=== PATIENT | female | born 1985 | race Caucasian/White ===

== ENCOUNTER 2023-12-26 08:08 | Emergency (ER) | payer MEDICARE, SELFPAY ==
[2023-12-26 08:18] VITALS: BP 116/74; PULSE 70; TEMP 36.8; O2SAT 97; BMI 22.5
--- NOTE | 2023-12-26 08:59 | ED.URI1 ---
HPI - URI/Sore Throat General Chief Complaint: Upper Respiratory Infection Stated Complaint: SYMPTOMS OF COVID Time Seen by Provider: 12/26/23 08:59 Source: patient Limitations: no limitations History of Present Illness HPI Narrative: This patient is not the primary historian as she has severe MRDD. Her mother is here with her and says she acting fine but because another family member tested positive for COVID they want her tested. She is eating and drinking normally. No change in her normal activities. Does not seem to be have any pain shortness of breath cough or congestion. Related Data Allergies Allergy/AdvReac Type Severity Reaction Status Date / Time No Known Drug Allergies Allergy Verified 12/26/23 08:18 Exam Narrative Exam Narrative: This patient's vital signs are completely normal she is watching television she is not restless agitated or irritated. Her skin is warm and dry with mucous memories moist and pink. TMs were examined at the request of the mother and both are normal. She does have some external wax but no evidence of infection. She has no cough or congestion. Her skin is warm and dry with good hydration status. She does not have any evidence of abdominal pain. Her extremities appear normal. Constitutional Vital Signs, click to edit/add: Last Vital Signs Temp 98.3 F 12/26/23 08:18 Pulse 70 12/26/23 08:18 Resp 18 12/26/23 08:18 BP 116/74 12/26/23 08:18 Pulse Ox 97 12/26/23 08:18 O2 Del Method Room Air 12/26/23 08:18 Course Vital Signs Vital signs: Vital Signs Temperature 98.3 F 12/26/23 08:18 Pulse Rate 70 12/26/23 08:18 Respiratory Rate 18 12/26/23 08:18 Blood Pressure 116/74 12/26/23 08:18 Pulse Oximetry 97 12/26/23 08:18 Oxygen Delivery Method Room Air 12/26/23 08:18 Temperature 98.3 F 12/26/23 08:18 Pulse Rate 70 12/26/23 08:18 Respiratory Rate 18 12/26/23 08:18 Blood Pressure 116/74 12/26/23 08:18 Pulse Oximetry 97 12/26/23 08:18 Oxygen Delivery Method Room Air 12/26/23 08:18 MDM - URI/Sore Throat MDM Narrative Medical decision making narrative: This patient tested negative for COVID and RSV at this time. Her mother is positive so with this current virus strain she will probably convert. However she has no respiratory distress or other or need for further diagnostic testing treatment or evaluation at this time Lab Data Labs: Lab Results 12/26/23 Range/Units 08:25 Influenza Type A Ag Negative Influenza Type B Ag Negative RSV Antigen Not detected (NOT DETECTE) SARS-CoV-2 Ag (CV2AG) Negative (NEGATIVE) Discharge Plan Discharge Stand Alone Forms: Work/School Release, Portal Instructions Chief Complaint: Upper Respiratory Infection Clinical Impression: Encounter for well exam without abnormal findings of patient 18 years of age or older Patient Disposition: Home, Self-Care Time of Disposition Decision: 09:44 Print Language: Polish Referrals: Valeri Jacobo MD [Primary Care Provider] - 1 week
[2023-12-26 09:23] LABS: Influenza Virus A Antigen Negative; Influenza Virus B Antigen Negative; Internal Control Within Normal Limits; Respiratory Syncytial Virus Not Detected (NOT DETECTE); SARS-CoV-2 Ag NEGATIVE (NEGATIVE)
== END 2023-12-26 10:08 | disposition home or self-care (01) ==
PROVIDERS: Emergency Provider Emergency Medicine Emergency Medical Services; PCP Family Medicine
DX: Z20.822 Contact with and (suspected) exposure to COVID-19 (principal); F79 Unspecified intellectual disabilities
CPT/HCPCS: 87420; 87804; 87811; 99283

== ENCOUNTER 2024-01-04 19:08 | Emergency (ER) | payer MEDICARE, MEDICAID, SELFPAY ==
--- OUTSIDE RECORDS SUMMARY | 2024-01-04 19:21 | XMS_ITS | CCD ---
Author Organization [facility]ini[facility] Care Team Providers Care Diplomatic Officer Name Role Phone PHYSICIAN, DEFAULT Unavailable Unavailable PHYSICIAN, DEFAULT Unavailable Unavailable MATOUSEK, GINETTE L Unavailable Unavailable DYSON, OZIEL AM Unavailable Unavailable DYSON, OZIEL AM Unavailable Unavailable MATOUSEK, GINETTE L Unavailable Unavailable LUCIA GINETTE L Unavailable Unavailable Bradly De Dios Unavailable ANTONIO SANTANA Admitting Unavailable ANTONIO SANTANA Attending Unavailable ANTONIO SANTANA Consulting Unavailable JAYDEN, DR VALERI Brody Primary Care Unavailable JAYDEN, DR VALERI Brody Primary Care Unavailable MOUKAANA, DR LU Admitting Unavailable MOUKARBEL, DR LU Attending Unavailable MOUKARBEL, DR LU Consulting Unavailable MARU PANTOJA Admitting Unavailable MARU PANTOJA Attending Unavailable MARU PANTOJA Consulting Unavailable JAYDEN, DR VALERI Brody Primary Care Unavailable AISHWARYA, DR MOSELEY Attending Unavailable LAWRENCE AMES Consulting Unavailable JAYDEN, DR VALERI Brody Primary Care Unavailable AISHWARYA, DR MOSELEY Admitting Unavailable DIAN SUÁREZ Consulting Unavailable MD Valeri Carpenter Primary Care Provider [phone] MD Bradly De Dios Attending Provider Valeri Carpenter Primary Care Unavailable Bradly De Dios Attending Unavailable Bradly De Dios Admitting Unavailable Bradly De Dios Attending Unavailable Bradly De Dios Admitting Unavailable Valeri Carpenter Primary Care Unavailable Valeri Carpenter Unavailable Unavailable Primary Care Provider UnavailANNA Claudio Attending Unavailable SAVANNAH WISDOM Attending Unavailable SAVANNAH WISDOM Referring Unavailable SAVANNAH WISDOM Admitting Unavailable SAVANNAH WISDOM Attending Unavailable SAVANNAH WISDOM Referring Unavailable Allergies Allergy Classification Reported Allergen(s) Allergy Type Date of Onset Reaction(s) Facility (1 source) Adhesive Tape; Translations: [ADHESIVE TAPE] Propensity to adverse reactions (disorder) 9 [facility] Repository (2 sources) Latex; Translations: [LATEX] Propensity to adverse reactions (disorder) 9 [facility] Repository (1 source) ADHESIVE TAPE-SILICONES; Translations: [ADHESIVE TAPE-SILICONES] Propensity to adverse reactions to drug (disorder) 2 [facility] Repository Medications Current Medications Medication Drug Class(es) Dates Sig (Normalized) Sig (Original) carvedilol 3.125 mg oral tablet (16 sources) alpha-Adrenergic Miguel, beta-Adrenergic Miguel Start: 10-19-2023 take 3.125 mg by mouth twice daily Carvedilol Active 3.125 MG PO Twice daily 60 October 19, 2023 4:46pm Start: 04-03-2021 End: 10-19-2023 take 3.125 mg by mouth once daily Carvedilol Discontinued 3.125 MG PO Daily April 03, 2021 1:00am October 19, 2023 4:46pm take 1 tablet by mavis th twice daily at mealtime carvedilol (COREG) 25 mg tablet Take 25 mg by mouth 2 times daily (with meals). 0 Active take 1 tablet by mavis th every twelve hours Carvedilol 3.125 MG 1 tablet with food Orally Twice a day Active Carvedilol Activ e clindamycin 10 mg/ml topical lotion (2 sources) Lincosamide Antibacterial Start: 03-13-2014 clindamycin (CLEOCIN T) 1 % lotion Clindamycin Phosphate 1 % External Lotion Refills: 0 Started 13-Mar-2014 Active 0 03/13/2014 Active clobetasol propionate 0.5 mg/ml topical cream (4 sources) Corticosteroid Start: 08-25-2023 Clobetasol Act jagdish 1 APPLIC TOPICAL Twice daily August 25, 2023 12:00am FreeTextSi application Externally Twice a day; Note: Source Status: Start; Refills: 1; Provider: Jayden Brody Clobetasol Propi skyler 0.05 % 1 application Externally Twice a day for 10 days Active esomeprazole 40 mg delayed release oral capsule (7 sources) Proton Pump Inhibitor Start: 08-25-2023 take 1 capsule by mouth once daily Esomeprazole Magnesium Active 1 CAP PO Daily August 25, 2023 12:00am FreeTextSi capsule Orally Once a day; Note: Source Status: Taking; Refills: 5; Qty: 30 Capsule; Provider: Va Iglesias Start: 08-15-2022 take 1 capsule by [facility] every twenty-four hours Esomeprazole Magnesium 40 MG 1 capsule Orally Once a day for 30 days Jul, Active Start: 07-31-2022 take 1 dose by mouth once idalmis y Esomeprazole Magnesium 40 MG 1 packet mixed with 15 ml of water Orally Once a day for 30 days Jul, Active gabapentin 300 mg oral capsule (19 sources) Anti-epileptic Agent Start: 05-31-2018 take 300 mg by mouth twice daily Gabapentin Active 300 MG PO Twice daily May 31, 2018 1:00am gabapentin (NEUR ONTIN) 300 mg capsule 1 capsule 3 (three) times a day. 0 Active Gabapentin Activ e lansoprazole 30 mg disintegrating oral tablet (2 sources) Proton Pump Inhibitor Start: 06-27-2015 lansoprazole (PREVACID SOLUTAB) 30 mg disintegrating tablet 1 tablet (30 mg total) by g-tube route daily. Dissolve in water 90 tablet 1 06/27/2015 Active levETIRAcetam 100 mg/ml oral solution (17 sources) Start: 08-25-2023 take 750 mg by mouth twice daily Levetiracetam Active 750 MG PO Twice daily August 25, 2023 12:00am Start: 05-31-2018 End: 08-25-2023 take 1 tablet by mouth twice daily Levetiracetam (Keppra) 750 mg Tablet Discontinued 750 MG PO Twice daily May 31, 2018 1:00am August 25, 2023 3:49pm Start: 08-31-2014 levETIRAcetam (KEPPRA) 100 mg/mL solution 7.5 Bottles. 0 08/31/2014 Active take 5 mL by mouth once daily le vETIRAcetam 100 MG/ML 5 ml Orally DAILY Active Nutritional Supplements (Replete) 0.06 gram-1 kcal/mL liquid (2 sources) Start: 08-25-2023 nystatin [id number] unt/ml topical cream (2 sources) Polyene Antifungal Start: 11-15-2014 nystatin (MYCOSTATIN) cream 0 Tubes. 0 11/15/2014 Active Omeprazole+Syrspend SF Ann Marie 2 MG/ML (2 sources) Start: 12-02-2022 take 5 mL by mouth once daily Omeprazole+Syrsp end SF Ann Marie 2 MG/ML 5 mL 30 minutes before morning meal Orally Once a day for 30 days Nov, Active polyethylene glycol 3350 23113 mg powder for oral solution (17 sources) Osmotic Laxative Start: 08-25-2023 take 1 g by mouth once daily Start: 05-31-2018 End: 04-03-2021 Polyethylene Glycol 3350 (Mi ralax) 17 gram Powder In Packet Discontinued 17 GM PO Twice daily May 31, 2018 1:00am April 03, 2021 10:36am polyethylene gly col (GLYCOLAX) 17 gram packet 0 Bottles daily. 0 Active MiraLax Orally O nce a day Not-Taking primidone 250 mg oral tablet (20 sources) Anti-epileptic Agent Start: 05-31-2018 take 250 mg by mouth twice daily Primidone Active 250 MG PO Twice daily May 31, 2018 1:00am Primidone Active Promote 1.0 - (10 sources) Promote 1.0 - as directed Orally Not-Taking Replete - (10 sources) Replete - as dir ected Orally Not-Taking Completed/Discontinued Medications Medication Drug Class(es) Dates Sig (Normalized) Sig (Original) aspirin 81 mg oral tablet (13 sources) Platelet Aggregation Inhibitor, Nonsteroidal Anti-inflammatory Drug Start: 04-03-2021 End: 08-25-2023 take 81 mg by mouth once daily Aspirin Discontinued 81 MG PO Daily April 03, 2021 1:00am August 25, 2023 3:48pm Aspirin Not-Taki ng Aspirin Active digoxin 0.25 mg oral tablet (17 sources) Cardiac Glycoside Start: 08-25-2023 End: 08-25-2023 take 1 tablet by mouth once daily Digoxin Discontinued 1 TAB PO Daily August 25, 2023 12:00am August 25, 2023 3:48pm FreeTextSi tablet Orally Once a day; Note: Source Status: Taking; Provider: Jayden Tramemll ( ) Start: 11-25-2018 End: 09-26-2021 Digoxin Discontinued 1 TAB F EEDTUBE Daily November 25, 2018 12:00am September 26, 2021 10:40am Start: 04-29-2013 digoxin (LANOX IN) 250 mcg tablet 0 tablets. Take 1 tablet daily- per G-tube 0 04/29/2013 Active docusate sodium 100 mg oral capsule (3 sources) Start: 05-31-2018 End: 11-25-2018 take 200 mg by mouth twice daily Docusate Sodium Discontinued 200 MG PO Twice daily May 31, 2018 1:00am November 25, 2018 7:23am levothyroxine sodium 0.05 mg oral tablet (17 sources) l-Thyroxi ne Start: 08-25-2023 End: 08-25-2023 take 1 tablet by mouth once daily in the morning Start: 11-25-2018 End: 04-03-2021 Levothyroxine Discontinued 5 0 MCG FEEDTUBE Daily November 25, 2018 12:00am April 03, 2021 10:36am Start: 05-16-2015 take 1 tablet by mavis th once daily in the morning levothyroxine (SYNTHROID, LEVOTHROID) 50 MCG tablet Indications: Hypothyroidism, unspecified hypothyroidism type Take 1 tablet (50 mcg total) by mouth every morning. 90 tablet 1 05/16/2015 Active take 1 tablet by mavis th once daily in the morning Problems Active Problems Problem Classification Problem Date Documented Da te Episodic/Chronic Abdominal pain (10 sources) Abdominal pain; Translations: [Unspecified abdominal pain] Episodic Allergic reactions (1 source) Unspecified contact dermatitis due to other chemical products Episodic Cardiac and circulatory congenital anomalies (3 sources) Congenital malformation of heart, unspecified; Translations: [Tetralogy of Fallot] Onset: 6 05-16-2015 Chronic Complication of device; implant or graft (3 sources) Colostomy hemorrhage; Translations: [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 Conduction disorders (4 sources) Cardiac pacemaker in situ; Translations: [Presence of cardiac pacemaker] Onset: 6 05-16-2015 Chronic Developmental disorders (2 sources) Mild intellectual disabilities; Translations: [Unspecified intellectual disabilities] Onset: 1 Chronic Epilepsy; convulsions (8 sources) Other epilepsy, not intractable, without status epilepticus; Translations: [Epilepsy, unspecified, not intractable, without status epilepticus] Onset: 6 Chronic Esophageal disorders (4 sources) Gastroesophageal reflux disease; Translations: [Gastro-esophageal reflux disease without esophagitis] Onset: 6 05-16-2015 Chronic Fever of unknown origin (4 sources) Fever, unspecified; Translations: [FEVER UNSPECIFIED] Onset: 2 Episodic Genitourinary symptoms and ill-defined conditions (2 sources) Urinary incontinence; Translations: [Unspecified urinary incontinence] Onset: 6 05-16-2015 Chronic Osteoarthritis (2 sources) Osteoarthritis; Translations: [Unspecified osteoarthritis, unspecified site] Onset: 6 05-16-2015 Chronic Other aftercare (1 source) Other emt intermediate (current) drug therapy; Translations: [OTH [facility] CURRENT DRUG THERAPY] Onset: 2 Episodic Other aftercare (1 source) [facility] (current) use of aspirin; Translations: [[facility] CURRENT USE OF ASPIRIN] Onset: 2 Episodic Other aftercare (1 source) Encounter for other specified surgical aftercare Episodic Other and ill-defined heart disease (4 sources) Cardiomegaly; Translations: [CARDIOMEGALY] Onset: 8 Chronic Other gastrointestinal disorders (3 sources) Gastrostomy status; Translations: [GASTROSTOMY STATUS] Onset: 2 Chronic Other gastrointestinal disorders (7 sources) Gastrostomy present; Translations: [Encounter for attention to gastrostomy] 04-03-2021 Chronic Other gastrointestinal disorders (2 sources) Irritable bowel syndrome; Translations: [Irritable bowel syndrome without diarrhea] Onset: 6 05-16-2015 Chronic Other gastrointestinal disorders (7 sources) Patient encounter status; Translations: [Encounter for fitting and adjustment of other gastrointestinal appliance and device] Onset: 6 09-27-2018 Episodic Other gastrointestinal disorders (2 sources) Dysphagia, oropharyngeal phase; Translations: [Dysphagia, oropharyngeal phase] Onset: 4 Episodic Other inflammatory condition of skin (2 sources) Rosacea; Translations: [Rosacea, unspecified] Onset: 6 05-16-2015 Chronic Other nutritional; endocrine; and metabolic disorders (2 sources) Hypocalcemia; Translations: [Hypocalcemia] Onset: 6 05-16-2015 Chronic Paralysis (13 sources) Cerebral palsy, unspecified; Translations: [Cerebral palsy] Onset: 6 Chronic Residual codes; unclassified (2 sources) History of placement of gastrostomy tube; Translations: [History of gastrostomy tube placement] 08-30-2023 Episodic Thyroid disorders (2 sources) Hypothyroidism; Translations: [Hypothyroidism, unspecified] Onset: 6 05-16-2015 Chronic Unclassified (2 sources) Unknown / UNK(Unknown) Onset: 8 Unclassified (1 source) K94.23 - Gastrostomy malfunction; Translations: [K94.23 - Gastrostomy malfunction] Onset: 2 Viral infection (1 source) COVID-19; Translations: [COVID-19] Onset: 2 Past or Other Problems Problem Classification Problem Date Documented Da te Episodic/Chronic Chronic obstructive pulmonary disease and bronchiectasis (2 sources) Bronchitis; Translations: [Bronchitis, not specified as acute or chronic] Onset: 6 05-16-2015 Episodic Complication of device; implant or graft (2 sources) Other mechanical complication of other gastrointestinal prosthetic devices, implants and grafts, initial encounter; Translations: [Other mechanical complication of other gastrointestinal prosthetic devices, implants and grafts, initial encounter] Onset: 4 Episodic Complications of surgical procedures or medical care (18 sources) Malfunction of gastrostomy tube; Translations: [Gastrostomy malfunction] Onset: 1 Resolved: 1 Episodic Deficiency and other anemia (2 sources) Anemia; Translations: [Anemia, unspecified] Onset: 6 05-16-2015 Episodic Gastrointestinal hemorrhage (2 sources) Gastrointestinal hemorrhage; Translations: [Gastrointestinal hemorrhage, unspecified] Onset: 6 05-16-2015 Episodic Malaise and fatigue (2 sources) Fatigue; Translations: [Other fatigue] Onset: 6 05-16-2015 Episodic Other circulatory disease (4 sources) Hemorrhage, not elsewhere classified; Translations: [HEMORRHAGE NOT ELSEWHERE CLASSIFIED] Onset: 2 Episodic Other gastrointestinal disorders (12 sources) Dysphagia; Translations: [Dysphagia, unspecified] Onset: 6 05-16-2015 Episodic Other gastrointestinal disorders (12 sources) Constipation; Translations: [Constipation, unspecified] Onset: 6 05-16-2015 Episodic Other gastrointestinal disorders (1 source) Dysphagia, unspecified; Translations: [Dysphagia, unspecified] Onset: 6 Episodic Other nutritional; endocrine; and metabolic disorders (2 sources) Abnormal weight loss; Translations: [Abnormal weight loss] Onset: 6 05-16-2015 Episodic Other skin disorders (2 sources) Acne; Translations: [Acne, unspecified] Onset: 6 05-16-2015 Episodic Other skin disorders (2 sources) Sebaceous cyst of skin; Translations: [Sebaceous cyst] Onset: 6 05-16-2015 Episodic Results Test Name Value Interpretation Reference Range Facility [facility] 12-25-2023 ----- ----- Attestation signed by Savannah Wisdom MD at 12/29/2023 9:45 AM I saw and evaluated the patient. I reviewed the resident's/fellow's note and agree with the findings and plan documents in the resident's/fellow's note ----- Gastroenterology History and Physical Note IDENTIFYING DATA PATIENT: Whitney Bliss HISTORY OF PRESENT ILLNESS Whitney Bliss is a 38 y.o. female here for PEG tube exchange. PAST MEDICAL, SURGICAL, FAMILY, and SOCIAL HISTORY Past Medical History: Past Medical History: Diagnosis Date Acquired hypothyroidism 12/09/2021 Atrioventricular block 12/09/2021 Cardiac pacemaker in situ 12/09/2021 Complete atrioventricular block (CMS/HCC) 12/09/2021 Tetralogy of Fallot 12/09/2021 Past Surgical History: Past Surgical History: Procedure Laterality Date CORONARY ARTERY BYPASS GRAFT N/A CTA HEART CORONARY W IV CONTRAST 08/24/2017 CT HEART CORONARY ANGIOGRAM OTERO CONVERSION INSERT / REPLACE / REMOVE PACEMAKER Family History: Family History Problem Relation Name Age of Onset Coronary artery disease Father Coronary artery disease Paternal Grandfather Social History: Social History Tobacco Use Smoking status: Never Smokeless tobacco: Never Substance Use Topics Alcohol use: Never Drug use: Never Allergies: Allergies Allergen Reactions Adhesive Tape-Silicones Latex Home Medications: Prior to Admission medications Medication Sig Start Date End Date Taking? Authorizing Provider aspirin 81 mg EC tablet Take 81 mg by mouth in the morning. Historical Provider, carvedilol (Coreg) 3.125 mg tablet Take 1 tablet (3.125 mg) by mouth with breakfast and with evening meal. 10/14/22 10/14/23 Walter Silva MD gabapentin (Neurontin) 300 mg capsule Take 300 mg by mouth in the morning, at noon, and at bedtime. Historical Provider, levETIRAcetam (Keppra) 100 mg/mL solution Take 7.5 mL by mouth in the morning and at bedtime. Historical Provider, primidone (Mysoline) 250 mg tablet Take 250 mg by mouth in the morning and at bedtime. Historical Provider, REVIEW OF SYSTEMS See HPI, otherwise ROS negative as below Review of Systems Unable to perform ROS: Patient nonverbal OBJECTIVE DATA Vitals: There were no vitals taken for this visit. Physical Exam HENT: Head: Normocephalic and atraumatic. Cardiovascular: Rate and Rhythm: Normal rate. Pulmonary: Effort: Pulmonary effort is normal. Abdominal: Palpations: Abdomen is soft. Tenderness: There is no abdominal tenderness. Skin: General: Skin is warm and dry. Neurological: Mental Status: She is alert. Mental status is at baseline. LABS CBC: No results found for: WBC , RBC , HGB , HCT , MCV , RDW , PLT PT/INR No results found for: PT , INR BMP: No results found for: NA , K , CL , BUN , CREATININE , EGFR , GLU LFTs: No results found for: BILITOT , BILIDIR , ALKPHOS , GGT , AST , ALT , ALBUMIN , PROT B12/Folate/Iron studies: No results found for: [id number] , FOLATE , IRON , TIBC , UIBC , IRONSAT , FERRITIN ASSESSMENT AND PLAN Plan: PEG tube exchange Normal [facility] NURSNOTEon 12-25-2023 NURSNOTE Informed consent obtained; procedural timeout preformed; Previous PEG balloon deflated and tube removed by MD; new 20Fr JOANNA g-tube placed and balloon inflated by MD; drain sponge placed beneath bumper; new PEG flushed with water to confirm patency; sign-out timeout performed; pt d/c'd. Please see physician note for full dictation. Makayla Kidd RN Normal [facility] Orders Onlyon 12-22-2023 Orders Only [id number] Sherrell Bliss 1985 F Date Provider Department Center 12/22/2023 Aroldo-SAVANNAH WISDOM [facility] Medical Pavi Family History Problem Relation Age of Onset Coronary artery disease Father Coronary artery disease Paternal Grandfather Family Status - Relation Status Age at Father Paternal Grandfather [facility] NURSNOTEon 07-22-2023 NURSNOTE 21 malaw[place] 10 ml of s safia in balloon, no pain, no change in skin site, [facility] EDPROVon 06-03-2023 EDPROV HPI Chief Complaint Patient presents with ??? G tube problem Per family tube needs replaced and her doctors office told them to bring her here immediately Pts mother states pts G-tube stopped working last night. She states pt does not appear to have any pain. History provided by: Parent [place] Coma Scale Score: 11 Patient History Past Medical History: Diagnosis Date ??? Acquired hypothyroidism 12/09/2021 ??? Atrioventricular block 12/09/2021 ??? Cardiac pacemaker in situ 12/09/2021 ??? Complete atrioventricular block (CMS/HCC) 12/09/2021 ??? Tetralogy of Fallot 12/09/2021 Past Surgical History: Procedure Laterality Date ??? CORONARY ARTERY BYPASS GRAFT N/A ??? CT HEART CORONARY ANGIOGRAM 08/24/2017 CT HEART CORONARY ANGIOGRAM OTERO CONVERSION ??? INSERT / REPLACE / REMOVE PACEMAKER Family History Problem Relation Name Age of Onset ??? Coronary artery disease Father ??? Coronary artery disease Paternal Grandfather Social History Tobacco Use ??? Smoking status: Never ??? Smokeless tobacco: Never Substance Use Topics ??? Alcohol use: Never ??? Drug use: Never Review of Systems Review of Systems Unable to perform ROS: Patient nonverbal Physical Exam ED Triage Vitals [06/03/23 0858] Temp Heart Rate Resp BP 36.6 ???C (97.9 ???F) 82 14 104/70 SpO2 Temp Source Heart Rate Source Patient Position 98 % Oral Monitor Sitting BP Location FiO2 (%) Left arm -- Physical Exam Constitutional: General: She is not in acute distress. Appearance: Normal appearance. She is not ill-appearing, toxic-appearing or diaphoretic. Abdominal: General: Bowel sounds are normal. Tenderness: There is no abdominal tenderness. Hernia: No hernia is present. Comments: G-tube site appears clean. No abdominal tenderness. No signs of site infection. Neurological: Mental Status: She is alert. Procedures ED Course & MDM ED Course as of 06/03/23 1029 ThuJun 03, 2023 1028 Nurse flushed G-tube 3x without difficulty. [BM] ED Course User Index [BM] Med Ascencio NP Diagnoses as of 06/03/23 1029 Feeding tube dysfunction, initial encounter Medical Decision Making Attestion Med Ascencio NP 06/03/23 1028 Normal [facility] CBC AUTO DIFFon 01-09-2022 BASO # 0.0 103/ul Normal 0.0-0.1 [facility] Comment on above: Performed By: #### CBC #### [facility] [address] [address] [address] Yamileth Figueroa Basophils/100 WBC (Bld) 0.2 % Normal 0.2-2.0 [facility] Comment on above: Performed By: #### CBC #### [facility] [address] [address] [address] Yamileth Figueroa EO # 0.0 103/ul Normal 0.0-0.7 [facility] Comment on above: Performed By: #### CBC #### [facility] [address] [address] [address] Yamileth Figueroa Eosinophils/100 WBC (Bld) 0.2 % Critically low 0.9-7.0 [facility] Comment on above: Performed By: #### CBC #### [facility] [address] [place] [address] Dr. Yamileth Figueroa Erythrocyte distribution width (RBC) [Ratio] 12.1 % Normal 11.0-15.0 [facility] Comment on above: Performed By: #### CBC #### [facility] [address] [place] [address] Dr. Yamileth Figueroa Hematocrit (Bld) [Volume fraction] 37.2 % Normal 36.0-48.0 [facility] Comment on above: Performed By: #### CBC #### [facility] [address] [place] [address] Dr. Yamileth Figueroa Hemoglobin (Bld) [Mass/Vol] 12.9 g/dL Normal 12.0-16.0 [facility] Comment on above: Performed By: #### CBC #### [facility] [address] [place] [address] Dr. Yamileth Figueroa IG # 0.02 10e3/ul Normal 0.00-0.03 [facility] Comment on above: Performed By: #### CBC #### [facility] [address] [place] [address] Dr. Yamileth Figueroa IG % 0.4 % Normal 0.0-0.5 [facility] Comment on above: Performed By: #### CBC #### [facility] [address] [place] [address] Dr. Yamileth Figueroa LYMPH # 0.4 103/ul Critically low 1.2-3.8 [facility] Comment on above: Performed By: #### CBC #### [facility] [address] [place] [address] Dr. Yamileth Figueroa Lymphocytes/100 WBC (Bld) 9.5 % Critically low 20.5-60.0 [facility] Comment on above: Performed By: #### CBC #### [facility] [address] [place] [address] Dr. Yamileth Figueroa MANUAL DIFF REQ NO Normal [facility] Comment on above: Performed By: #### CBC #### [facility] [address] [place] [address] Dr. Yamileth Figueroa MCH (RBC) [Entitic mass] 34.2 pg Critically high 26.7-34.0 [facility] Comment on above: Performed By: #### CBC #### [facility] [address] [place] [address] Dr. Yamileth Figueroa MCHC (RBC) [Mass/Vol] 34.7 g/dL Normal 29.9-35.2 [facility] Comment on above: Performed By: #### CBC #### [facility] [address] [place] [address] Dr. Yamileth Figueroa MCV (RBC) [Entitic vol] 98.7 fL Normal 81.0-99.0 [facility] Comment on above: Performed By: #### CBC #### [facility] [address] [place] [address] Dr. Yamileth Figueroa MONO # 0.7 103/ul Normal 0.3-0.8 [facility] Comment on above: Performed By: #### CBC #### [facility] [address] [place] [address] Dr. Yamileth Figueroa Monocytes/100 WBC (Bld) 14.8 % Critically high 1.7-12.0 [facility] Comment on above: Performed By: #### CBC #### [facility] [address] [place] [address] Dr. Yamileth Figueroa NEUT # 3.4 103/ul Normal 1.4-6.5 [facility] Comment on above: Performed By: #### CBC #### [facility] [address] [place] [address] Dr. Yamileth Figueroa Neutrophils/100 WBC (Bld) 74.9 % Normal 43.0-75.0 [facility] Comment on above: Performed By: #### CBC #### [facility] [address] [place] [address] Dr. Yamileth Figueroa Platelet mean volume (Bld) [Entitic vol] 13.3 fL Normal 9.5-13.5 [facility] Comment on above: Performed By: #### CBC #### [facility] [address] [address] [address] Yamileth Figueroa PLT 90 103/ul Critically low 150-450 [facility] Comment on above: Performed By: #### CBC #### [facility] [address] [place] [address] Dr. Yamileth Figueroa RBC 3.77 106/ul Critically low 4.20-5.40 [facility] Comment on above: Performed By: #### CBC #### [facility] [address] [place] [address] Dr. Yamileth Figueroa WBC 4.5 103/ul Normal 4.0-11.0 [facility] Comment on above: Performed By: #### CBC #### [facility] [address] [place] [address] Dr. Yamileth Figueroa Covid-19 PCR (CVDTBH)on 12-26 SARS-CoV-2 (COVID-19) RNA HIEU+probe Ql (Unsp spec) Detected Critically abnormal NOT DETECTED [facility] Comment on above: Result Comment: This test is not yet catherine roved or cleared by the [place] FDA. When there are no FDA-approved or cleared tests available, and other criteria are met, FDA can make tests available under an emergency access mechanism called an Emergency Use Authorization (EUA). The EUA for this test is supported by the [place] of Health and Human Service's declaration that circumstances exist to justify the emergency use of in vitro diagnostics for the detection and/or diagnosis of the virus that causes COVID-19. This EUA will remain in effect for the duration of the COVID-19 declaration justifying emergency of IVDs, unless it is terminated or revoked by the FDA (after which the test may no longer be used). Performed By: #### C VDTBH #### [facility] [address] [place] [address] Dr. Yamileth Figueroa PROF CHEM 8 (BAS METB)on Anion gap [Moles/Vol] 10.1 mmol/L Normal [facility] Comment on above: Performed By: #### BMP #### [facility] [address] [place] [address] Dr. Yamileth Figueroa Calcium [Mass/Vol] 7.6 mg/dL Critically low 8.5-10.1 [facility] Comment on above: Performed By: #### BMP #### [facility] [address] [address] [address] Yamileth Figueroa Chloride [Moles/Vol] 101 mmol/L Normal 98-107 [facility] Comment on above: Performed By: #### BMP #### [facility] [address] [address] [address] Yamileth Figueroa CO2 [Moles/Vol] 27.5 mmol/L Normal 21.0-32.0 [facility] Comment on above: Performed By: #### BMP #### [facility] [address] [place] [address] Dr. Yamileth Figueroa Creatinine [Mass/Vol] 0.63 mg/dL Normal 0.55-1.02 [facility] Comment on above: Performed By: #### BMP #### [facility] [address] [place] [address] Dr. Yamileth Figueroa EGFR-AF THAI >60 Normal >=60 [facility] Comment on above: Performed By: #### BMP #### [facility] [address] [place] [address] Dr. Yamileth Figueroa EGFR-NON AF THAI >60 Normal >=60 [facility] Comment on above: Performed By: #### BMP #### [facility] [address] [place] [address] Dr. Yamileth Figueroa Glucose [Mass/Vol] 91 mg/dL Normal 74-106 [facility] Comment on above: Performed By: #### BMP #### [facility] [address] [address] [address] Yamileth Figueroa Potassium [Moles/Vol] 3.6 mmol/L Normal 3.5-5.1 [facility] Comment on above: Performed By: #### BMP #### [facility] [address] [place] [address] Dr. Yamileth Figueroa Sodium [Moles/Vol] 135 mmol/L Critically low 136-145 [facility] Comment on above: Performed By: #### BMP #### [facility] [address] [address] [address] Yamileth Figueroa Urea nitrogen [Mass/Vol] 13.0 mg/dL Normal 7.0-18.0 [facility] Comment on above: Performed By: #### BMP #### [facility] [address] [address] [address] Yamileth Figueroa Urea nitrogen/Creatin ine [Mass ratio] 20.6 mg/mg Normal [facility] Comment on above: Performed By: #### BMP #### [facility] [address] [address] [address] Yamileth Figueroa XR CHEST 1 Von 01-09-2022 XR CHEST 1 V EXAM: XR CHEST 1 V a t 1831 hours HISTORY: COUGH COMPARISON: 05/11/2020 TECHNIQUE: AP upright portable chest x-ray FINDINGS: The study is technically a bit limited by shallow inspiration. The left lung base is also partially obscured by the pacemaker, and the apices are partially obscured by the chin placement. The heart appears mildly enlarged without evidence of cardiac decompensation. No acute infiltrate, effusion or pneumothorax is readily identified. Scoliosis of the spine is noted. IMPRESSION: The study is technically a bit limited. The heart is enlarged without overt cardiac decompensation. A focal infiltrate is not identified at this time. The overall appearance of the chest has probably not changed significantly. A follow-up study encouraging the patient to take a deep inspiration and lift up the chin is recommended. Electronically authenticated by: DIAN SUÁREZ Date: 2022-01-09 19:07 Normal [facility] CBC AUTO DIFFon 10-01-2021 BASO # 0.0 103/ul Normal 0.0-0.1 [facility] Comment on above: Performed By: #### CBC #### [facility] [address] [place] [address] Dr. Yamileth Figueroa Basophils/100 WBC (Bld) 0.2 % Normal 0.2-2.0 [facility] Comment on above: Performed By: #### CBC #### [facility] [address] [place] [address] Dr. Yamileth Figueroa EO # 0.3 103/ul Normal 0.0-0.7 [facility] Comment on above: Performed By: #### CBC #### [facility] [address] [place] [address] Dr. Yamileth Figueroa Eosinophils/100 WBC (Bld) 5.6 % Normal 0.9-7.0 [facility] Comment on above: Performed By: #### CBC #### [facility] [address] [place] [address] Dr. Yamileth Figueora Erythrocyte distribution width (RBC) [Ratio] 12.3 % Normal 11.0-15.0 [facility] Comment on above: Performed By: #### CBC #### [facility] [address] [place] [address] Dr. Yamileth Figueroa Hematocrit (Bld) [Volume fraction] 38.6 % Normal 36.0-48.0 [facility] Comment on above: Performed By: #### CBC #### [facility] [address] [place] [address] Dr. Yamileth Figueroa Hemoglobin (Bld) [Mass/Vol] 13.2 g/dL Normal 12.0-16.0 [facility] Comment on above: Performed By: #### CBC #### [facility] [address] [place] [address] Dr. Yamileth Figueroa IG # 0.01 10e3/ul Normal 0.00-0.03 [facility] Comment on above: Performed By: #### CBC #### [facility] [address] [place] [address] Dr. Yamileth Figueroa IG % 0.2 % Normal 0.0-0.5 [facility] Comment on above: Performed By: #### CBC #### [facility] [address] [place] [address] Dr. Yamileth Figueroa LYMPH # 1.4 103/ul Normal 1.2-3.8 [facility] Comment on above: Performed By: #### CBC #### [facility] [address] [place] [address] Dr. Yamileth Figueroa Lymphocytes/100 WBC (Bld) 23.8 % Normal 20.5-60.0 [facility] Comment on above: Performed By: #### CBC #### [facility] [address] [address] [address] Yamileth Figueroa MANUAL DIFF REQ NO Normal [facility] Comment on above: Performed By: #### CBC #### [facility] [address] [place] [address] Dr. Yamileth Figueroa MCH (RBC) [Entitic mass] 34.1 pg Critically high 26.7-34.0 [facility] Comment on above: Performed By: #### CBC #### [facility] [address] [place] [address] Dr. Yamileth Figueroa MCHC (RBC) [Mass/Vol] 34.2 g/dL Normal 29.9-35.2 [facility] Comment on above: Performed By: #### CBC #### [facility] [address] [place] [address] Dr. Yamileth Figueroa MCV (RBC) [Entitic vol] 99.7 fL Critically high 81.0-99.0 [facility] Comment on above: Performed By: #### CBC #### [facility] [address] [place] [address] Dr. Yamileth Figueroa MONO # 0.5 103/ul Normal 0.3-0.8 [facility] Comment on above: Performed By: #### CBC #### [facility] [address] [place] [address] Dr. Yamileth Figueroa Monocytes/100 WBC (Bld) 7.9 % Normal 1.7-12.0 [facility] Comment on above: Performed By: #### CBC #### [facility] [address] [place] [address] Dr. Yamileth Figueroa NEUT # 3.8 103/ul Normal 1.4-6.5 [facility] Comment on above: Performed By: #### CBC #### [facility] [address] [place] [address] Dr. Yamileth Figueroa Neutrophils/100 WBC (Bld) 62.3 % Normal 43.0-75.0 [facility] Comment on above: Performed By: #### CBC #### [facility] [address] [place] [address] Dr. Yamileth Figueroa Platelet mean volume (Bld) [Entitic vol] 13.4 fL Normal 9.5-13.5 [facility] Comment on above: Performed By: #### CBC #### [facility] [address] [address] [address] Yamileth Figueroa PLT 137 103/ul Critically low 150-450 [facility] Comment on above: Performed By: #### CBC #### [facility] [address] [place] [address] Dr. Yamileth Figueroa RBC 3.87 106/ul Critically low 4.20-5.40 [facility] Comment on above: Performed By: #### CBC #### [facility] [address] [place] [address] Dr. Yamileth Figueroa WBC 6.0 103/ul Normal 4.0-11.0 [facility] Comment on above: Performed By: #### CBC #### [facility] [address] [place] [address] Dr. Yamileth Figueroa PROF 14(COMP METB)on 022 Albumin [Mass/Vol] 3.5 g/dL Normal 3.4-5.0 [facility] Comment on above: Performed By: #### CMP #### [facility] [address] [place] [address] Dr. Yamileth Figueroa Albumin/Globulin [Mass ratio] 0.9 {ratio} Normal [facility] Comment on above: Performed By: #### CMP #### [facility] [address] [place] [address] Dr. Yamileth Figueroa ALP [Catalytic activity/Vol] 136 U/L Critically high 46-116 [facility] Comment on above: Performed By: #### CMP #### [facility] [address] [place] [address] Dr. Yamileth Figueroa ALT [Catalytic activity/Vol] 46 U/L Normal 14-59 [facility] Comment on above: Performed By: #### CMP #### [facility] [address] [place] [address] Dr. Yamileth Figueroa Anion gap [Moles/Vol] 11.9 mmol/L Normal [facility] Comment on above: Performed By: #### CMP #### [facility] [address] [place] [address] Dr. Yamileth Figueroa AST [Catalytic activity/Vol] 23 U/L Normal 15-37 [facility] Comment on above: Performed By: #### CMP #### [facility] [address] [place] [address] Dr. Yamileth Figueroa Bilirubin [Mass/Vol] 0.3 mg/dL Normal 0.2-1.0 [facility] Comment on above: Performed By: #### CMP #### [facility] [address] [place] [address] Dr. Yamileth Figueroa Calcium [Mass/Vol] 8.2 mg/dL Critically low 8.5-10.1 [facility] Comment on above: Performed By: #### CMP #### [facility] [address] [place] [address] Dr. Yamileth Figueroa Chloride [Moles/Vol] 102 mmol/L Normal 98-107 [facility] Comment on above: Performed By: #### CMP #### [facility] [address] [place] [address] Dr. Yamileth Figueroa CO2 [Moles/Vol] 27.8 mmol/L Normal 21.0-32.0 [facility] Comment on above: Performed By: #### CMP #### [facility] [address] [place] [address] Dr. Yamileth Figueroa Creatinine [Mass/Vol] 0.58 mg/dL Normal 0.55-1.02 [facility] Comment on above: Performed By: #### CMP #### [facility] [address] [place] [address] Dr. Yamileth Figueroa EGFR-AF THAI >60 Normal >=60 [facility] Comment on above: Performed By: #### CMP #### [facility] [address] [place] [address] Dr. Yamileth Figueroa EGFR-NON AF THAI >60 Normal >=60 [facility] Comment on above: Performed By: #### CMP #### [facility] [address] [address] [address] Yamileth Figueroa Globulin (S) [Mass/Vol] 3.8 g/dL Normal [facility] Comment on above: Performed By: #### CMP #### [facility] [address] [address] [address] Yamileth Figueroa Glucose [Mass/Vol] 55 mg/dL Critically low 74-106 [facility] Comment on above: Performed By: #### CMP #### [facility] [address] [address] [address] Yamileth Figueroa Potassium [Moles/Vol] 3.7 mmol/L Normal 3.5-5.1 [facility] Comment on above: Performed By: #### CMP #### [facility] [address] [place] [address] Dr. Yamileth Figueroa Protein [Mass/Vol] 7.3 g/dL Normal 6.4-8.2 [facility] Comment on above: Performed By: #### CMP #### [facility] [address] [address] [address] Yamileth Figueroa Sodium [Moles/Vol] 138 mmol/L Normal 136-145 [facility] Comment on above: Performed By: #### CMP #### [facility] [address] [place] [address] Dr. Yamileth Figueroa Urea nitrogen [Mass/Vol] 11.0 mg/dL Normal 7.0-18.0 [facility] Comment on above: Performed By: #### CMP #### [facility] [address] [address] [address] Yamileth Figueroa Urea nitrogen/Creatin ine [Mass ratio] 19.0 mg/mg Normal [facility] Comment on above: Performed By: #### CMP #### [facility] [address] [address] [address] Yamileth Figueroa LEVETIRACETAM, SERUM OR PLAS MAon 07-12-2021 Levetiracetam, S 15.3 ug/mL Normal 10.0-40.0 [facility] Comment on above: Performed By: #### KEPPRA #### [facility] [address] [address] [address] Yamileth Figueroa CTA HEART-CORONARY/ ARTERY B YPASS GRAFT WITH 3DPPon 08-24-2017 CTA HEART-CORONARY/ ARTERY BYPASS GRAFT [facility] 3DPP [facility] [place] [address] P atient Name: WHITNEY BLISS : 1985Sex: FAge: Race: WhiteMRN: [id number]. Location: 30Patient Status: OVisit #: [id number] Date: 08/13/2017 10:55:00 AMCompleted Date: 08/24/2017 03:22 PMRequesting Provider: OZIEL DYSON AM Attending Provider: OZIEL DYSON AM Report Copy To: GINETTE MYERS Signs & Symptoms: RV function EspeciallyHistory: Order scanned into [employer] highmark @ [phone] call ref# [id number]: RV function EspeciallyExam: CTA HEART-CORONARY/ ARTERY BYPASS GRAFT WITH 3DPPAccession #: [id number] ======CTA HEART-CORONARY/ ARTERY BYPASS GRAFT WITH 3DPP 08/24/2017 3:22 PM EDT SIGN AND SYMPTOMS: RV function Especially TECHNOLOGIST COMMENTS: hx of heart disease heart function, RV function pt with MRDD QUESTIONS PER RADIOLOGIST: RV function Especially PROTOCOL: Axial CT angiography images were obtained with IV contrast. CONTRAST: Contrast: OMNIPAQUE 350 (LOCM), 100 milliliter, Intravenous TECHNIQUE: Multidetector CT angiogram was obtained using prospective ECG gating. Imaging was performed from the level of the clavicles to the level of the hemidiaphragms. In order to provide better evaluation of the anatomy and disease process, advanced off-line 3-D post-processing techniques, including were performed. Medication administered in preparation for the examination located in nursing documentation. COMPARISON: None. CORONARY ARTERY ANGIOGRAM FINDINGS: Gated cardiac CT examination is performed. There is enlargement right ventricle and right-sided pacer wires are seen within the atrium and ventricle was left subclavian pacer seen in place. There is mild cardiomegaly but no evidence of pericardial effusion. [place] coronary arteries appear grossly unremarkable. 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 There is normal left ventricular wall motion. There is mild global decreased motion of the right ventricle. Cardiac Devices and Indwelling Central Venous Lines: Left subclavian pacer in place. EXTRACARDIAC FINDINGS: Other lung findings: No focal consolidation in the visualized parts of the lungs. Airway: Normal.Pleura: No pleural effusion, thickening, or pneumothorax.Thoracic aorta and great vessels: Prominent ascending aorta with maximum dimension of 3.8 cm diameter suggesting post aortic valve stenosis dilatation or could be secondary to long-standing hypertensionPulmonary arteries: Normal. .Heart and pericardium: Mild cardiomegaly.Lymph nodes: No enlarged thoracic lymph nodes.Thoracic spine: Normal.Chest wall: Normal.Visualized upper abdomen: Normal. IMPRESSION: 1. Gated cardiac CT examination revealed prominent ascending aorta which could be secondary to poststenotic aortic dilatation or chronic hypertension. No dissection. Incidental aberrant right subclavian artery origin from the aortic arch Normal wall motion and ejection fraction of the left ventricle. Enlarged right ventricle with global diffuse hypokinesis. Electronically signed by:Estefany Hall. Transcribed by: [email or web address], User Resident: Electronically Signed by: ESTEFANY HALL @ 08/24/2017 06:36 PM Normal [facility] Comment on above: Order Comment: RV function Especially Vital Signs Date Time Vital Sign Value Performing Clinician Facility 10-27-2023 08:42-0400 Body height 134.62 cm [facility] 10-27-2023 08:42-0400 Body mass index (BMI) [Ratio] 25.9 kg/m2 [facility] 10-27-2023 08:42-0400 Body weight 47 kg [facility] 10-27-2023 08:42-0400 Diastolic blood pressure 76 mm[Hg] [facility] 10-27-2023 08:42-0400 Heart rate 82 /min [facility] 10-27-2023 08:42-0400 Systolic blood pressure 111 mm[Hg] [facility] 08-25-2023 15:42-0400 Body height 134.62 cm [facility] 08-25-2023 15:42-0400 Body mass index (BMI) [Ratio] 26.2 kg/m2 [facility] 08-25-2023 15:42-0400 Body weight 47.62 kg [facility] 08-25-2023 15:42-0400 Diastolic blood pressure 82 mm[Hg] [facility] 08-25-2023 15:42-0400 Heart rate 105 /min [facility] 08-25-2023 15:42-0400 Systolic blood pressure 121 mm[Hg] [facility] 12-15-2022 11:45-0400 Body height 134.62 cm Valeri Carpenter Other [employer] [facility] Other 12-15-2022 11:45-0400 Body mass index (BMI) [Ratio] 26.28 kg/m2 Valeri Carpenter Other [employer] Other 12-15-2022 11:45-0400 Body weight 47.63 kg Valrei Carpenter Other [employer] Other 12-15-2022 11:45-0400 Diastolic blood pressure 75 mm[Hg] Valeri Carpenter Other [employer] Other 12-15-2022 11:45-0400 Systolic blood pressure 114 mm[Hg] Valeri Carpenter Other [employer] Other 07-31-2022 14:30-0400 Body height 134.62 cm Bradly De Dios Other [employer] Other 07-31-2022 14:30-0400 Body mass index (BMI) [Ratio] 27.03 kg/m2 Bradly De Dios Other [employer] Other 07-31-2022 14:30-0400 Body weight 48.99 kg Bradly De Dios Other [employer] Other 07-31-2022 14:30-0400 Diastolic blood pressure 80 mm[Hg] Bradly De Dios Other [employer] Other 07-31-2022 14:30-0400 Systolic blood pressure 132 mm[Hg] Bradly De Dios Other [employer] Other 07-01-2022 10:00-0500 Body height 134.62 cm Valeri Carpenter Other [employer] Other 07-01-2022 10:00-0500 Body mass index (BMI) [Ratio] 27.03 kg/m2 Valeri Carpenter Other [employer] Other 07-01-2022 10:00-0500 Body weight 48.99 kg Valeri Carpenter Other [employer] Other 07-01-2022 10:00-0500 Diastolic blood pressure 74 mm[Hg] Valeri Carpenter Other [employer] Other 07-01-2022 10:00-0500 Systolic blood pressure 126 mm[Hg] Valeri Carpenter Other [employer] Other 05-20-2022 13:49-0500 Body height 152.4 cm MD Valeri Carpenter Work Phone: [facility] 05-20-2022 13:49-0500 Body temperature 97.5 [degF] MD Valeri Carpenter Work Phone: [facility] 05-20-2022 13:49-0500 Body weight 48.98 kg MD Valeri Carpenter Work Phone: [facility] 05-20-2022 13:49-0500 Diastolic blood pressure 55 mm[Hg] MD Valeri Carpenter Work Phone: [facility] 05-20-2022 13:49-0500 Heart rate 70 /min MD Valeri Carpenter Work Phone: [facility] 05-20-2022 13:49-0500 Respiratory rate 18 /min MD Valeri Carpenter Work Phone: [facility] 05-20-2022 13:49-0500 SaO2% (BldA) [Mass fraction] 96 % MD Valeri Carpenter Work Phone: [facility] 05-20-2022 13:49-0500 Systolic blood pressure 110 mm[Hg] MD Valeri Carpenter Work Phone: [facility] 04-01-2021 15:45-0500 Body height 134.62 cm Bradly De Dios Other [employer] [facility] Other 04-01-2021 15:45-0500 Body mass index (BMI) [Ratio] 26.03 kg/m2 Bradly De Dios Other [employer] [facility] Other 04-01-2021 15:45-0500 Body weight 47.17 kg Bradly De Dios Other Audience [facility] Other Encounters Encounter Date Encounter Type Care Provider Facility Start: 12-25-2023 End: 12-25-2023 [facility] Start: 10-27-2023 [facility] Start: 10-27-2023 End: 10-27-2023 ambulatory [facility] Work Phone: Start: 10-27-2023 End: 10-27-2023 Encounter for general adult medical examination without abnormal findings [facility] Start: 10-27-2023 End: 10-27-2023 Patient encounter procedure [facility] Physician [facility] Work Phone: Start: 08-25-2023 End: 08-25-2023 ambulatory [facility] Work Phone: Start: 08-25-2023 End: 08-25-2023 Patient encounter procedure [facility] Physician [facility] Work Phone: Start: 08-05-2023 End: 08-05-2023 ambulatory ANNA JS [facility] Start: 07-22-2023 End: 07-22-2023 ambulatory [facility] Start: 06-23-2023 Telephone encounter Annabarrett Monter[address] rd LD Work Phone: [facility] Start: 06-04-2023 Telephone encounter Anna Cyril rd LD Work Phone: [facility] Comment on above: tube feeding follow- up Start: 06-03-2023 End: 06-03-2023 Emergency department patient visit [facility] Start: 03-04-2023 End: 03-04-2023 ambulatory Valeri Carpenter Other [employer] Other Start: 03-04-2023 Telephone encounter Valeri Carpenter [facility] Start: 12-15-2022 End: 12-15-2022 ambulatory Valeri Carpenter Other [employer] Other Start: 12-15-2022 Office outpatient visit 15 minutes Valeri Carpenter [facility] Start: 08-15-2022 End: 08-15-2022 ambulatory Bradly Echevarriaaymchester Other [employer] Other Start: 08-15-2022 Telephone encounter Bradly VELASCO [facility] Start: 07-31-2022 (Acute) Acute Visit Bradly VELASCO [facility] Start: 07-31-2022 End: 07-31-2022 ambulatory Bradly Echevarria[place] Other [employer] Other Start: 07-24-2022 End: 07-24-2022 ambulatory Bradly Eche[place] Other [employer] Other Start: 07-24-2022 Telephone encounter Bradly Ehcevarriaamy[place] [facility] Start: 07-01-2022 End: 07-01-2022 ambulatory Valeri Carpenter Other [employer] Other Start: 07-01-2022 Office outpatient visit 15 minutes Valeri Carpenter [facility] Start: 05-22-2022 End: 05-22-2022 ambulatory Valeri Carpenter Other [employer] Other Start: 05-22-2022 Telephone encounter Valeri Carpenter [facility] Start: 05-20-2022 End: 05-20-2022 ambulatory Valeri Carpenter [facility] Start: 05-20-2022 End: 05-20-2022 Admission to same day surgery center MD Valeri Carpenter Work Phone: [facility] Work Phone: Start: 05-20-2022 End: 05-20-2022 ambulatory MD Valeri Carpenter Work Phone: [facility] Work Phone: Start: 02-17-2022 End: 02-17-2022 ambulatory Bradly De Dios Other [employer] Other Start: 02-17-2022 Telephone encounter Bradly VELASCO [facility] Start: 01-09-2022 End: 01-09-[address] PRADIP NEFF Facility:[facility] Start: 10-01-2021 End: 10-02-[address] VALERI CARPENTER Facility:[facility] Start: 09-26-2021 End: 09-26-2021 ambulatory Bradly De Dios [facility] Start: 09-24-2021 End: 09-24-2021 ambulatory Bradly De Dios Other [employer] Other Start: 09-24-2021 Telephone encounter Bradly VELASCO [facility] Start: 07-08-2021 End: 07-09-2021 ambulatory MARU PANTOJA Facility:[facility] Start: 04-01-2021 End: 04-01-2021 ambulatory Bradly De Dios Other [employer] Other Start: 04-01-2021 Patient encounter procedure Bradly De Dios [facility] Start: 03-18-2021 End: 03-18-2021 ambulatory ANTONIO SANTANA Facility:[facility] Start: 08-24-2017 End: 08-25-2017 Ambulatory OZIEL DYSON Facility:[facility] Start: 08-04-2017 End: 08-05-2017 Ambulatory DEFAULT PHYSICIAN Facility:[facility] Start: 05-16-2015 Patient encounter status Anna KHAN Work Phone: [facility] Procedures Date Procedure Procedure Detail Performing Clinician Start: 05-20-2022 Change of gastrostomy tube MD Valeri Carpenter Work Phone: Plan of Treatment Date Care Activity Detail Author Start: 12-26-2022 COVID-19 Vaccine () [facility]19 [facility]ine () [facility] Start: 05-20-2022 [facility] Start: 04-05-2020 DTaP,Tdap and Td Vaccines (4 - Td or Tdap) DTaP,Tdap and Td Vaccines (4 - Td or Tdap) [facility] Start: 09-26-2007 Screening for malign ant neoplasm of cervix Pap Smear [facility] Start: 2004 Adult BMI Screening Adult BMI Screen ing [facility] Start: 1998 Depression Screening Depression Scre ening [facility] Start: 1998 Tobacco Screening Tobacco Screening [facility] Immunizations Immunization Date Immunization Notes Care Provider Fa cility 03-13-2023 influenza, injectabl e, quadrivalent, preservative free [facility] 07-27-2020 COVID-19 mRNA, Comir karl (Pfizer) MD Valeri Carpenter Work Phone: [facility] 01-25-2014 influenza, injectabl e, quadrivalent, contains preservative Bradly De Dios Other [facility] 02-06-2012 influenza, seasonal, injectable, preservative free Anna Minard LD Work Phone: [facility] 02-06-2012 pneumococcal polysaccharide vaccine, 23 valent Anna Minard LD Work Phone: [facility] 02-10-2011 influenza, seasonal, injectable, preservative free Anna Minard LD Work Phone: [facility] 04-05-2010 influenza, seasonal, injectable, preservative free Anna Minard LD Work Phone: [facility] 04-05-2010 tetanus toxoid, redu liz diphtheria toxoid, and acellular pertussis vaccine, adsorbed Anna Minard LD Work Phone: [facility] 02-25-2007 influenza, seasonal, injectable, preservative free Anna Minard LD Work Phone: [facility] 02-25-2006 influenza, seasonal, injectable, preservative free Anna Minard LD Work Phone: [facility] Payers Date Payer Category Payer Self-pay [id number] 2015 [place] [id number] 2015-Present [phone] [address] [place] [address] [id number] 2006 Medicare MEDICARE MEDICAR E PART A & B [id number] 2006-Present [phone] [address] [place] [address] [id number] 1986 Unknown [id number] 1986 Unknown [id number] 1986 Unknown [id number] 1986 Unknown [id number] 1986 Unknown [id number] 1959 Blue Cross Blue Shield [id number] 1958 Medicaid [id number] 1958 Medicare [id number] Blue Cross Blue Shield [id number] Unknown Unknown [id number] 31 Unknown [id number] Social History Date Type Detail Facility Start: 05-16-2015 End: 06-07-2020 Sex Assigned At [facility] [employer] Other Start: 04-03-2021 End: 04-03-2021 Tobacco smoking status NHIS Never smoked tobacco (finding) [facility] Start: 1985 Sex Assigned At Female F [facility] Start: 05-16-2015 Alcohol intake 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) [facility] Start: 05-16-2015 End: 06-07-2020 History of Social function [facility] Childcare Unknown [facility] Start: 1985 Sex Assigned At Not on file P [facility] Goals Date Patient Goal Desired Activity /State Clinical Notes 04-01-2021 to 06-23-2023 Telephone Encounter - Anna Caballero, BILL - 06/23/2023 3:40 PM ESTTelephone Encounter - Anna Caballero, - 06/23/2023 3:40 PM ESTTelephone Encounter - Anna Caballero, BILL - 06/04/2023 4:25 PM EST Note Date & Type Note Facility 06-23-2023 Miscellaneous Notes Formattin g of this note might be different from the original. NUTRITION NOTE This hand sign writer placed a call to Mrs. Bliss (Whitney's grandmother/caregiver) today to follow up regarding Whitney's tube feeding therapy. As the call wasn't answered a message was left requesting a return call. Anna Caballero R.D., L.D. Clinical Dietitian - Outpatient Nutrition Support 06/23/23, 3:41 PM documented in this encounter [facility] 06-23-2023 Telephone encount er Note NUTRITION NOTE This hand sign writer placed a call to Mrs. Bliss (Whitney's grandmother/caregiver) today to follow up regarding Whitney's tube feeding therapy. As the call wasn't answered a message was left requesting a return call. Anna Caballero R.D., L.D. Clinical Dietitian - Outpatient Nutrition Support 06/23/23, 3:41 PM [facility] [employer] 06-04-2023 Miscellaneous Notes Formattin g of this note might be different from the original. NUTRITION NOTE This hand sign writer placed a call to Mrs. Bliss (Whitney's grandmother/caregiver) today to follow up regarding Whitney's tube feeding therapy. As the call wasn't answered a message was left requesting a return call. Anna Caballero R.D., L.D. Clinical Dietitian - Outpatient Nutrition Support 06/04/23, 4:27 PM documented in this encounter [facility] [employer] 06-04-2023 Telephone encount er Note NUTRITION NOTE This hand sign writer placed a call to Mrs. Bliss (Whitney's grandmother/caregiver) today to follow up regarding Whitney's tube feeding therapy. As the call wasn't answered a message was left requesting a return call. Anna Caballero R.D., L.D. Clinical Dietitian - Outpatient Nutrition Support 06/04/23, 4:27 PM [facility] Evaluation note Encounter Date Diagnosis Assessment Notes Nov, Contact dermatitis due to other chemical product, unspecified contact dermatitis type (ICD-10 - L25.3) Keep area clean and dry. Wash hands to prevent infection. Finish cream to help with dryness and itching. Nov, PEG (percutaneous endoscopic gastrostomy) status (ICD-10 - Z93.1) Resolved problem. Grandmother states she will continue to followup w [facility] [employer] Other 04-06-2023 Evaluation note* Encounter Date Diagnosis Assessment Notes Treatment Notes Treatment Clinical Notes Jul, PEG (percutaneous endoscopic gastrostomy) status (ICD-10 - Z93.1) Start Nexium packets daily Follow up in 3-4 months [employer] Other 03-07-2023 Evaluation note* Encounter Date Diagnosis Assessment Notes Treatment Notes Treatment Clinical Notes Jun, Encounter for post surgical wound check (ICD-10 - Z48.89) Wound appears well healed. Exam overall normal today. Discussed medications, decisions grandmother has made in her care. Will continue to follow. Jun, Cerebral palsy, unspecified type (ICD-10 - G80.9) Stable with chronic issues. Will continue tube feed to prevent risk of aspiration. [employer] Other 12-06-2021 Evaluation note* Encounter Date Diagnosis Assessment Notes Treatment Notes Treatment Clinical Notes Mar, PEG tube malfunction (ICD-10 - K94.23) SCHEDULE PEG TUBE REPLACEMENT AT [facility] UNTIL THEN CONTINUE TO FLUSH AFTER FEEDINGS [employer] Other Evaluation noteNo InformationNort [employer] Other Evaluation noteNo assessment information available [facility] Work Phone: Evaluation note* Diagnosis Onset Date Resolution Status Cerebral palsy acute History of gastrostomy tube placement acute Presence of cardiac pacemaker acute Cerebral palsy acute Wellness examination acute [facility] Work Phone: Histohi general Narrative - Reported* Type Description Date Medical History Constipation Medical History Constipation Medical History Black stools Medical History Fever Medical History HEMATEMESIS Medical History Rectal Bleeding Medical History Fecal impaction Medical History Abdominal pain Surgical History PACEMAKER Surgical History OPEN HEART SURGERY Surgical History PEG [employer] Other [employer] general Narrative - Reported* Type Description Date Medical History Constipation Medical History Black stools Medical History Fever Medical History HEMATEMESIS Medical History Rectal Bleeding Medical History Fecal impaction Medical History Abdominal pain Medical History cerebral palsy Medical History Epilepsia partialis continua Medical History Presence of cardiac pacemaker Medical History Tetralogy of Fallot Medical History Urinary incontinence Medical History Severe pulmonary valve regurgita tion Medical History Nonsustained [place] Medical History Complete heart block Surgical History PACEMAKER Surgical History OPEN HEART SURGERY Surgical History PEG [employer] Other history general Narrative - Reported* Type Description Date Medical History Constipation Medical History Black stools Medical History Fever Medical History HEMATEMESIS Medical History Rectal Bleeding Medical History Fecal impaction Medical History Abdominal pain Medical History cerebral palsy Medical History Epilepsia partialis continua Medical History Presence of cardiac pacemaker Medical History Tetralogy of Fallot Medical History Urinary incontinence Medical History Severe pulmonary valve regurgita tion Medical History Nonsustained [place] Medical History Complete heart block Surgical History PACEMAKER Surgical History OPEN HEART SURGERY Surgical History PEG Surgical History replace pacemaker [employer] Other InstructionsNot on filedocumented in this encounter [facility] [employer] System[facility]ructionsNot on filedocumented in this encounter [facility] [facility] Summary Purpose Family History No Family History Records Found Relationship Condition Age at Onset Recorded Date/T joon father Multiple sclerosis Unknown Advance Directives No Advanced Directives Records Found Advance Directive Response Recorded Date/ Time Advance Directives No May 31, 2018 5:19pm Advance Directive Response Recorded Date/ Time Advance Directives No May 31, 2018 6:19pm Chief Complaint and Reason for Visit Chief Complaint Peg Tube Malfunction , Dysphagia Chief Complaint check up Chief Complaint check up wellness Reason for Visit Cerebral palsy History of gastrostomy tube placement Presence of cardiac pacemaker Cerebral palsy Wellness examination Additional Source Comments INFORMATION SOURCE (unrecogn ized section and content) DATE CREATED AUTHOR 10/15/2017 [facility] DATE CREATED AUTHOR AUTHOR'S ORGANIZ ATION 01/29/2022 [facility] DATE CREATED AUTHOR AUTHOR'S ORGANIZ ATION 05/28/2022 [facility] DATE CREATED AUTHOR AUTHOR'S ORGANIZ ATION 08/07/2023 [facility] DATE CREATED AUTHOR AUTHOR'S ORGANIZ ATION 12/29/2023 [facility] REASON FOR VISIT (unrecogniz ed section and content) Reason Onset Date Comments tube feeding follow-up 06/04/2023 Care Teams (unrecognized sec tion and content) Team Status: Inactive Member Role Status Dates Valeri Carpenter MD Primary Care Provider Active Bradly De Dios MD Attending Provider Active Team Status: Active Member Role Status Dates Valeri Carpenter MD Primary Care Provider Active Team Status: Inactive Member Role Status Dates Valeri Carpenter MD Primary Care Provide r, Attending Provider Active Start: August 25, 2023 End: August 25, 2023 Team Status: Inactive Member Role Status Dates Valeri Carpenter MD Primary Care Provide r, Attending Provider Active Start: October 27, 2023 End: October 27, 2023 Goals (unrecognized section and content) Goals may be documented in a n alternate section FOR RECORDS PERTAINING TO PATIENTS WHO ARE OR HAVE BEEN ENROLLED IN A CHEMICAL DEPENDENCY/SUBSTANCEABUSE PROGRAM, SOME INFORMATION MAY BE OMITTED. This clinical summary was aggregated from multiple sources. Caution should be exercised in using it in the provision of clinical care. This summary normalizes information from multiple sources, and as a consequence, information in this document may materially change the coding, format and clinical context of patient data. In addition, data may be omitted in some cases. CLINICAL DECISIONS SHOULD BE BASED ON THE PRIMARY CLINICAL RECORDS. [facility] [employer] provides no warranty or guarantee of the accuracy or completeness of information in this document.
[2024-01-04 19:26] VITALS: BP 132/75; PULSE 83; TEMP 36.8; O2SAT 97
--- NOTE | 2024-01-04 19:42 | XR_ITS ---
The [address] [address] Patient Name: WHITNEY GREEN MRN: [id number] date: 1985 Sex: F Assigned Patient Location: ER Current Patient Location: ER Accession/Order Number: [id number] Exam Date: 01/04/2024 20:15 Report Date: 01/04/2024 21:34 At the request of: LIEN MARKER Procedure: XR acute abdomen series EXAM: XR acute abdomen series HISTORY: fever, s/p PEG tube replacement COMPARISON: None. TECHNIQUE: Frontal view of the chest as well as supine and upright views of the abdomen FINDINGS: Mild enlarged cardiac silhouette is seen. Cardiac pacemaker is seen in place. No dense focal consolidation, pneumothorax or pleural effusion is seen. PEG tube is seen in place. Nonspecific bowel gas pattern is seen. Markedly large volume of stool is seen throughout the colon. The rectum appears to be distended approximately 11.5 cm with stool. No obvious pathologic calcification is seen. No definite gross pneumoperitoneum is seen. XR/XR acute abdomen series IMPRESSION: Markedly large volume of stool seen throughout the colon. Electronically authenticated by: TUSHAR DOMÍNGUEZ Date: 01/04/2024 21:34
--- NOTE | 2024-01-04 20:16 | ED_ITS ---
HPI HPI - General Adult General Chief complaint: Fever Stated complaint: Fever Time Seen by Provider: 01/04/24 19:28 Source: family Mode of arrival: Wheelchair Limitations: no limitations History of Present Illness HPI narrative: This 38-year-old female with a history of cerebral palsy/MRDD is brought to the emergency department by her mother upon recommendation by the family physician for evaluation of intermittent fevers for the past 3 weeks. The mother states that she had her in this emergency department after she tested positive for COVID. The patient tested negative for COVID but has had intermittent fever since that time. She does have a feeding tube which was recently changed out. She has not been having any difficulty feeding. She has not had any vomiting. She does have occasional diarrhea. She has not been coughing. She does not have any skin rash. The mother states that another thing that is different about her is that she does not want to walk. The patient is contracted in her lower extremities but the mother states she is still able to walk when she has since her but most recently the patient has been just standing and shaking when attempting to walk. She has not had any recent seizures. Her Tmax has been around 10 1-1 02. The fever comes down with Tylenol and then bounces back. Related Data Home Medications ?Medication ?Instructions ?Recorded ?Confirmed carvedilol 25 mg tablet 25 mg feeding tube Q12H 01/04/24 01/04/24 gabapentin 300 mg capsule 300 mg feeding tube Q8H 01/04/24 01/04/24 levetiracetam 100 mg/mL oral 750 mg feeding tube Q12H 01/04/24 01/04/24 solution primidone 250 mg tablet 250 mg feeding tube Q12H 01/04/24 01/04/24 Allergies Allergy/AdvReac Type Severity Reaction Status Date / Time No Known Drug Allergies Allergy Verified 01/04/24 19:33 Opioid HPI Opioid Management Most Recent Opioid Data: No Data to Display Review of Systems ROS Status of ROS 10 or more systems reviewed and unremark able except as noted in history and below Exam Narrative Exam Narrative: Vital signs and Nursing Notes reviewed: Patient is afebrile with a normal pulse, normal blood pressure, she is not hypoxic with pulse ox of 97% on room air General: Nontoxic adult female with cerebral palsy, no respiratory distress, she is not lethargic HEENT: Normocephalic atraumatic, mucous membranes are dry-mother states her tongue is always dry because she keeps her tongue sticking out Neck: Supple, no meningeal signs, no anterior or posterior cervical lymphadenopathy Chest: Lungs are clear to auscultation with good air entry, there is no wheezing rhonchi or rales appreciated no accessory muscle use, patient is speaking in complete sentences-no chest wall tenderness to palpation CVS: Regular rate and rhythm S1-S2, no murmurs rubs or gallops, pulses are brisk and equal bilaterally ABD: Soft, nondistended, tube noted in upper abdomen. The site is clean dry and intact with no local erythema or signs of cellulitis Extremities: Contractures are noted of the hands and feet with the feet being externally rotated. There is no noted skin rash, cellulitis or breakdown Skin: Normal in appearance without rash,pallor, petechiae or purpura Neuro: At baseline Constitutional Vital Signs, click to edit/add: Last Vital Signs Temp 98.3 F 01/04/24 19:26 Pulse 83 01/04/24 19:26 Resp 18 01/04/24 19:26 BP 132/75 01/04/24 19:26 Pulse Ox 97 01/04/24 19:26 O2 Del Method Room Air 01/04/24 19:26 Course Vital Signs Vital signs: Vital Signs Temperature 98.3 F 01/04/24 19:26 Pulse Rate 83 01/04/24 19:26 Respiratory Rate 18 01/04/24 19:26 Blood Pressure 132/75 01/04/24 19:26 Pulse Oximetry 97 01/04/24 19:26 Oxygen Delivery Method Room Air 01/04/24 19:26 Temperature 98.3 F 01/04/24 19:26 Pulse Rate 83 01/04/24 19:26 Respiratory Rate 18 01/04/24 19:26 Blood Pressure 132/75 01/04/24 19:26 Pulse Oximetry 97 01/04/24 19:26 Oxygen Delivery Method Room Air 01/04/24 19:26 Medical Decision Making MDM Narrative Medical decision making narrative: This 38-year-old female is brought to the emergency department by her grandmother who has had custody of her since the age of 6 for evaluation of a fever. The grandmother recently had COVID. The patient was tested for COVID at that time but was negative but according to the note the grandmother was told it was presumptively positive as they live together and the patient was having some symptoms. The patient has MRDD/cerebral palsy. She has not recently had any seizures. She has a PEG tube for feeding. She has not had any vomiting or concerns for aspiration. She has not had a cough or runny nose. Her PEG tube was recently replaced. The grandmother states that she gives her Tylenol and the fever comes down but rebounds after the Tylenol has worn off. The patient is nontoxic in appearance and at her neurologic baseline according to the grandmother. An IV was placed and she was medicated with IV fluids. In the emergency department her vital signs were stable. She is negative for strep. Positive for COVID. She has a normal white count and hemoglobin. Lactic acid is normal. Electrolytes are normal. X-ray of the chest and abdomen was reviewed by radiology with no acute findings except constipation and the patient is on MiraLAX.. The urine was unable to be obtained due to the patient's anatomy. The results of the labs and x-ray were discussed with the grandmother who verbalizes understanding. The grandmother inquired as to how long I thought she had had COVID. I explained I am unable to answer that question but at this time she should be quarantined and kept at home with IV fluids, Tylenol and ibuprofen for fever and return to the emergency department for worsening symptoms respiratory difficulty or any concerns. Medical Records Medical records reviewed: Yes I reviewed the patient's medical records Medical records narrative: The [address] [address] XRay Report Signed Patient: WHITNEY GREEN MR#: [id number] : 1985 Acct:[id number] Age/Sex: 38 / F ADM Date: 01/04/24 Loc: ER Attending Dr: Ordering Physician: Elana Jean Date of Service: 01/04/24 Procedure(s): XR acute abdomen series Accession Number(s): [id number] cc: Valeri Jacobo M.D.; Elana Jean~ The [address] [address] Patient Name: WHITNEY GREEN MRN: [facility]:[id number] date: 1985 Sex: F Assigned Patient Location: ER Current Patient Location: ER Accession/Order Number: [id number] Exam Date: 01/04/2024 20:15 Report Date: 01/04/2024 21:34 At the request of: ELANA JEAN Procedure: XR acute abdomen series EXAM: XR acute abdomen series HISTORY: fever, s/p PEG tube replacement COMPARISON: None. TECHNIQUE: Frontal view of the chest as well as supine and upright views of the abdomen FINDINGS: Mild enlarged cardiac silhouette is seen. Cardiac pacemaker is seen in place. No dense focal consolidation, pneumothorax or pleural effusion is seen. PEG tube is seen in place. Nonspecific bowel gas pattern is seen. Markedly large volume of stool is seen throughout the colon. The rectum appears to be distended approximately 11.5 cm with stool. No obvious pathologic calcification is seen. No definite gross pneumoperitoneum is seen. XR/XR acute abdomen series IMPRESSION: Markedly large volume of stool seen throughout the colon. Electronically authenticated by: TUSHAR DOMÍNGUEZ Date: 01/04/2024 21:34 Lab Data Lab results reviewed: Yes I reviewed the patient's lab results Labs: Lab Results 01/04/24 01/04/24 01/04/24 Range/Units 21:00 21:01 21:02 WBC 6.5 (4.0-11.0) 10^3/uL RBC 4.25 (4.20-5.40) 10^6/uL Hgb 14.2 (12.0-16.0) g/dL Hct 41.3 (36.0-48.0) % MCV 97.2 (81.0-99.0) fL MCH 33.4 (26.7-34.0) pg MCHC 34.4 (29.9-35.2) g/dL RDW 12.0 (11.0-15.0) % Plt Count 134 L (150-450) 10^3/uL MPV 12.9 (9.5-13.5) fL Neut % (Auto) 63.2 (43.0-75.0) % Lymph % (Auto) 23.7 (20.5-60.0) % [place] % (Auto) 6.9 (1.7-12.0) % Eos % (Auto) 5.7 (0.9-7.0) % Baso % (Auto) 0.2 (0.2-2.0) % Neut # (Auto) 4.1 (1.4-6.5) 10^3/uL Lymph # (Auto) 1.5 (1.2-3.8) 10^3/uL [place] # (Auto) 0.5 (0.3-0.8) 10^3/uL Eos # (Auto) 0.4 (0.0-0.7) 10^3/uL Baso # (Auto) 0.0 (0.0-0.1) 10^3/uL Abs Immat Gran (auto) 0.02 (0.00-0.03) 10^3/uL Imm/Tot Granulo (auto) 0.3 (0.0-0.5) % Sodium 139 (136-145) mmol/L Potassium 3.5 (3.5-5.1) mmol/L Chloride 101 (98-107) mmol/L Carbon Dioxide 26.1 (21.0-32.0) mmol/L Anion Gap 15.4 BUN 12.0 (7.0-18.0) mg/dL Creatinine 0.68 (0.55-1.02) mg/dL Est GFR ( Amer) >60 (>=60) Est GFR (Non-Af Amer) >60 (>=60) BUN/Creatinine Ratio 17.6 Glucose 81 (74-106) mg/dL Lactate 0.9 (0.4-2.0) mmol/L Calcium 8.6 (8.5-10.1) mg/dL Total Bilirubin 0.3 (0.2-1.0) mg/dL AST 23 (15-37) U/L ALT 28 (14-59) U/L Alkaline Phosphatase 134 H (46-116) U/L Total Protein 7.8 (6.4-8.2) g/dL Albumin 3.8 (3.4-5.0) g/dL Globulin 4.0 g/dL Albumin/Globulin Ratio 0.9 SARS-CoV-2 Ag (CV2AG) Positive A (NEGATIVE) Streptococcus Screen Negative Discharge Plan Discharge Chief Complaint: Fever Clinical Impression: COVID, Acute viral syndrome Patient Disposition: Home, Self-Care Time of Disposition Decision: 22:17 Condition: Good Prescriptions / Home Meds: No Action carvedilol 25 mg tablet 25 mg feeding tube Q12H gabapentin 300 mg capsule 300 mg feeding tube Q8H primidone 250 mg tablet 250 mg feeding tube Q12H levetiracetam 100 mg/mL solution 750 mg feeding tube Q12H Print Language: Italian Instructions: Viral Syndrome (ED), COVID-19 (Coronavirus Disease 2019) (ED), COVID-19 and Chronic Health Conditions (ED), How to Recover from COVID-19 at Home (ED) Referrals: Valeri Jacobo MD [Primary Care Provider] - 1 week
[2024-01-04] MEDS: 0.9 % SODIUM CHLORIDE 1,000 ML 1000 ML IV (21:12)
[2024-01-04 21:24] LABS: Basophils Percent Auto 0.2 % (0.2-2.0); Eosinophils Absolute Auto 0.4 10^3/uL (0.0-0.7); Eosinophils Percent Auto 5.7 % (0.9-7.0); Hematocrit 41.3 % (36.0-48.0); Hemoglobin 14.2 g/dL (12.0-16.0); Immature Granulocytes Abs Auto 0.02 10^3/uL (0.00-0.03); Immature Granulocytes Pct Auto 0.3 % (0.0-0.5); Lymphocytes Absolute Auto 1.5 10^3/uL (1.2-3.8); Lymphocytes Percent Auto 23.7 % (20.5-60.0); Mean Corpuscular HGB Conc 34.4 g/dL (29.9-35.2); Mean Corpuscular Hemoglobin 33.4 pg (26.7-34.0); Mean Corpuscular Volume 97.2 fL (81.0-99.0); Mean Platelet Volume 12.9 fL (9.5-13.5); Monocytes Absolute Auto 0.5 10^3/uL (0.3-0.8); Monocytes Percent Auto 6.9 % (1.7-12.0); Neutrophils Absolute Auto 4.1 10^3/uL (1.4-6.5); Neutrophils Percent Auto 63.2 % (43.0-75.0); Platelet Count 134 10^3/uL (150-450); Red Blood Count 4.25 10^6/uL (4.20-5.40); White Blood Count 6.5 10^3/uL (4.0-11.0)
[2024-01-04 21:44] LABS: SARS-CoV-2 Ag POSITIVE (NEGATIVE)
[2024-01-04 21:45] LABS: Internal Control Within Normal Limits; Strep A Antigen Screen Negative
[2024-01-04 21:45] LABS: Internal Control Within Normal Limits
[2024-01-04 21:46] LABS: Lactate/Lactic Acid 0.9 mmol/L (0.4-2.0)
[2024-01-04 21:52] LABS: Alanine Aminotransferase 28 U/L (14-59); Albumin Globulin Ratio 0.9; Albumin Level 3.8 g/dL (3.4-5.0); Alkaline Phosphatase 134 U/L (46-116); Aspartate Amino Transferase 23 U/L (15-37); BUN Creatinine Ratio 17.6; Bilirubin Total 0.3 mg/dL (0.2-1.0); Calcium 8.6 mg/dL (8.5-10.1); Chloride 101 mmol/L (98-107); Estimated GFR (African America >60 (>=60); Estimated GFR (Non-African Ame >60 (>=60); Glucose 81 mg/dL (74-106); Potassium 3.5 mmol/L (3.5-5.1); Sodium 139 mmol/L (136-145); Total Protein 7.8 g/dL (6.4-8.2)
[2024-01-04 21:57] LABS: Anion Gap 15.4; Carbon Dioxide 26.1 mmol/L (21.0-32.0)
== END 2024-01-04 22:43 | disposition home or self-care (01) ==
PROVIDERS: Emergency Provider Emergency Medicine; PCP Family Medicine
DX: U07.1 COVID-19 (principal); G80.9 Cerebral palsy, unspecified; F79 Unspecified intellectual disabilities; Z93.1 Gastrostomy status; K59.00 Constipation, unspecified
CPT/HCPCS: 36415; 74022; 80053; 81001; 83605; 85025; 87040; 87070; 87811; 87880; 99284

== ENCOUNTER 2024-03-14 13:54 | Outpatient (OUT) | payer MEDICARE, MEDICAID, SELFPAY ==
[2024-03-14 14:29] LABS: Basophils Percent Auto 0.3 % (0.2-2.0); Eosinophils Absolute Auto 0.5 10^3/uL (0.0-0.7); Eosinophils Percent Auto 8.5 % (0.9-7.0); Hematocrit 39.9 % (36.0-48.0); Hemoglobin 13.5 g/dL (12.0-16.0); Immature Granulocytes Abs Auto 0.01 10^3/uL (0.00-0.03); Immature Granulocytes Pct Auto 0.2 % (0.0-0.5); Lymphocytes Absolute Auto 1.5 10^3/uL (1.2-3.8); Lymphocytes Percent Auto 24.8 % (20.5-60.0); Mean Corpuscular HGB Conc 33.8 g/dL (29.9-35.2); Mean Corpuscular Hemoglobin 33.6 pg (26.7-34.0); Mean Corpuscular Volume 99.3 fL (81.0-99.0); Mean Platelet Volume 12.9 fL (9.5-13.5); Monocytes Absolute Auto 0.4 10^3/uL (0.3-0.8); Monocytes Percent Auto 6.4 % (1.7-12.0); Neutrophils Absolute Auto 3.7 10^3/uL (1.4-6.5); Neutrophils Percent Auto 59.8 % (43.0-75.0); Platelet Count 133 10^3/uL (150-450); Red Blood Count 4.02 10^6/uL (4.20-5.40); Red Cell Distribution Width 12.1 % (11.0-15.0); White Blood Count 6.1 10^3/uL (4.0-11.0)
[2024-03-14 15:02] LABS: Alanine Aminotransferase 16 U/L (14-59); Albumin Globulin Ratio 0.8; Albumin Level 3.3 g/dL (3.4-5.0); Alkaline Phosphatase 123 U/L (46-116); Anion Gap 10.3; Aspartate Amino Transferase 16 U/L (15-37); BUN Creatinine Ratio 16.7; Bilirubin Total 0.3 mg/dL (0.2-1.0); Calcium 8.6 mg/dL (8.5-10.1); Carbon Dioxide 29.4 mmol/L (21.0-32.0); Chloride 103 mmol/L (98-107); Estimated GFR (African America >60 (>=60 mL/min/1.73m^2); Estimated GFR (Non-African Ame >60 (>=60 mL/min/1.73m^2); Globulin 4.2 g/dL; Glucose 89 mg/dL (74-106); Potassium 3.7 mmol/L (3.5-5.1); Sodium 139 mmol/L (136-145); Total Protein 7.5 g/dL (6.4-8.2)
[2024-03-15 17:10] LABS: Levetiracetam (Keppra), S 24.2 ug/mL (10.0-40.0)
== END 2024-03-14 13:55 | disposition home or self-care (01) ==
LOC: LAB 14:00
PROVIDERS: PCP Family Medicine; Visit Provider Physician Assistant
DX: G40.309 Generalized idiopathic epilepsy and epileptic syndromes, not intractable, without status epilepticus (principal)
CPT/HCPCS: 36415; 80053; 80177; 80184; 85025